=== PATIENT | male | born 1980 | race Caucasian/White ===

== ENCOUNTER 2017-03-17 15:35 | Emergency (ER) | payer MEDICAID, OTHER ==
[2017-03-17 15:42] VITALS: BP 111/74; PULSE 98; RESP 18; TEMP 98.1; O2SAT 99
--- NOTE | 2017-03-17 15:48 | C.PDOC ---
History Of Present Illness 36 y/o male presents to the ED requesting heroin detox. Patient denies any other associated symptoms at this time. REQUESTING HEROIN DETOX. DENIES OTHER ASSOC SX EXAM NAD PSYCH CALM COOPERATIVE NO ACUTE INTOX OR WITHDRAWAL Time Seen by Provider: 03/17/17 15:45 Chief Complaint (Nursing): Substance Abuse History Per: Patient History/Exam Limitations: no limitations Onset/Duration Of Symptoms: Hrs Current Symptoms Are (Timing): Still Present Suicide/Self Injury Attempted (Context): None Modifying Factor(s): Narcotics Associated Symptoms: denies: Suicidal Thoughts, Suicidal Plan Involuntary Hold By: None Recent travel outside of the [place]: No Additional History Per: Patient Past Medical History Reviewed: Historical Data, Nursing Documentation, Vital Signs Vital Signs: Last Vital Signs Temp 98.1 F 03/17/17 15:37 Pulse 98 H 03/17/17 15:37 Resp 18 03/17/17 15:37 BP 111/74 03/17/17 15:37 Pulse Ox 99 03/18/17 19:25 - Medical History PMH: No Chronic Diseases Surgical History: No Surg Hx Family History: States: Unknown Family Hx - Social History Hx Alcohol Use: No Hx Substance Use: Yes - Immunization History Hx Tetanus Toxoid Vaccination: Yes Hx Influenza Vaccination: Yes Hx Pneumococcal Vaccination: No Review Of Systems Psych: Positive for: Other (+requesting heroin detox ). Negative for: Suicidal ideation Physical Exam - Physical Exam Appears: Non-toxic, No Acute Distress Skin: Normal Color, Warm, Dry Head: Atraumatic, Normacephalic Eye(s): bilateral: Normal Inspection Oral Mucosa: Moist Neck: Supple Chest: Symmetrical, No Deformity, No Tenderness Cardiovascular: Rhythm Regular, No Murmur Respiratory: Normal Breath Sounds, No Rales, No Rhonchi, No Wheezing Extremity: Normal ROM Neurological/Psych: Other (calm, cooperative. no acute intoxication or withdrawal ) ED Course And Treatment O2 Sat by Pulse Oximetry: 99 (on RA) Pulse Ox Interpretation: Normal Progress Note: On reassessment, patient is resting comfortably and showing no signs of distress. Patient is informed about the unavailability of detox beds at this time and given proper information to inquire further about bed availability. - Physician Consult Information Time Consulting Physician Contacted: 15:47 Outcome Of Conversation: d/w crisis lukas no detox bed avail Disposition Counseled Patient/Family Regarding: Diagnosis, Need For Followup - Disposition Referrals: prerna,detox [Other] Disposition: HOME/ ROUTINE Disposition Time: 15:47 Condition: GOOD Instructions: Narcotic Abuse (ED) Forms: [email or web address] (Chinese) - Clinical Impression Clinical Impression: Narcotic abuse - Scribe Statement The provider has reviewed the documentation as recorded by the Scribe (Maribel Hi) Provider Attestation: All medical record entries made by the Scribe were at my direction and personally dictated by me. I have reviewed the chart and agree that the record accurately reflects my personal performance of the history, physical exam, medical decision making, and the department course for this patient. I have also personally directed, reviewed, and agree with the discharge instructions and disposition.
== END 2017-03-17 15:55 | disposition home or self-care (01) ==
LOC: C.ER 15:35
DX: F19.10 Other psychoactive substance abuse, uncomplicated (principal)

== ENCOUNTER 2017-05-18 18:23 | Inpatient (IN) | payer MEDICAID, OTHER ==
--- NOTE | 2017-05-18 19:31 | C.PDOC ---
History Of Present Illness Patient presents to the ER as a prescreen for heroin detox. Patient reports last use was 20 bags at 17:00; denies physical complaints at this time. Time Seen by Provider: 05/18/17 19:30 Chief Complaint (Nursing): Medical Clearance History Per: Patient History/Exam Limitations: no limitations Onset/Duration Of Symptoms: Hrs Current Symptoms Are (Timing): Still Present Severity: None Pain Scale Rating Of: 0 Recent travel outside of the [place]: No Past Medical History Reviewed: Historical Data, Nursing Documentation, Vital Signs Vital Signs: Last Vital Signs Temp 97.9 F 05/18/17 20:00 Pulse 82 05/18/17 20:00 Resp 18 05/18/17 20:00 BP 107/64 05/18/17 20:00 Pulse Ox 96 05/18/17 20:00 - Medical History PMH: No Chronic Diseases Surgical History: No Surg Hx Family History: States: No Known Family Hx - Social History Hx Alcohol Use: No Hx Substance Use: Yes - Immunization History Hx Tetanus Toxoid Vaccination: Yes Hx Influenza Vaccination: Yes Hx Pneumococcal Vaccination: No Review Of Systems Constitutional: Negative for: Fever, Chills Gastrointestinal: Negative for: Nausea, Vomiting, Diarrhea Physical Exam - Physical Exam Appears: Non-toxic Skin: Warm, Dry Head: Normacephalic Oral Mucosa: Moist Chest: Symmetrical Cardiovascular: Rhythm Regular Respiratory: No Rales, No Rhonchi, No Wheezing Gastrointestinal/Abdominal: Soft, No Tenderness Neurological/Psych: Oriented x3 ED Course And Treatment - Laboratory Results Result Diagrams: 05/18/17 19:52 05/18/17 19:52 O2 Sat by Pulse Oximetry: 100 (Room air) Pulse Ox Interpretation: Normal Progress Note: Blood work and urinalysis ordered. Reevaluation Time: 22:08 Reassessment Condition: Improved Disposition Discussed With : Placido Arteaga Comment: accepted the pt on his service and took over the care at 10:10 PM Doctor Will See Patient In The: Hospital Counseled Patient/Family Regarding: Studies Performed, Diagnosis - Disposition Disposition: HOSPITALIZED Disposition Time: 19:31 Condition: FAIR Forms: [facility] (Welsh) - POA Present On Arrival: None - Clinical Impression Clinical Impression: Narcotic abuse, Opioid use disorder, severe, dependence - Scribe Statement The provider has reviewed the documentation as recorded by the Scribluis enrique Richter All medical record entries made by the Antonietta were at my direction and personally dictated by me. I have reviewed the chart and agree that the record accurately reflects my personal performance of the history, physical exam, medical decision making, and the department course for this patient. I have also personally directed, reviewed, and agree with the discharge instructions and disposition. Decision To Admit - Pt Status Changed To: Hospital Disposition Of: Inpatient - Admit Certification Admit to Inpatient:: After my assessment, the patient will require hospitalization for at least two midnights. This is because of the severity of symptoms shown, intensity of services needed, and/or the medical risk in this patient being treated as an outpatient. - InPatient: Physician Admission Certification: I certify that this patient requires 2 or more midnights of care for the following reason:: After my assessment, the patient will require hospitalization for at least two midnights. This is because of the severity of symptoms shown, intensity of services needed, and/or the medical risk in this patient being treated as an outpatient. - . Bed Request Type: Detox Admitting Physician: Placido Arteaga Patient Diagnosis: Narcotic abuse, Opioid use disorder, severe, dependence
[2017-05-18 20:00] LABS: BASO % 0.4 % (0.0-2.0); EOS # 0.2 K/uL (0.0-0.7); EOS % 3.7 % (0.0-4.0); HEMATOCRIT 44.7 % (35.0-51.0); LYMPH # 2.3 K/uL (1.0-4.3); LYMPH % 34.7 % (20.0-40.0); MEAN CELL VOLUME 86.9 fL (80.0-94.0); MEAN CORPUSCULAR HEMOGLOBIN 29.1 pg (27.0-31.0); MEAN CORPUSCULAR HGB CONC 33.5 g/dL (33.0-37.0); MONO # 0.4 K/uL (0.0-0.8); MONO % 5.7 % (0.0-10.0); RED CELL DISTRIBUTION WIDTH 13.5 % (11.5-14.5); WHITE BLOOD COUNT 6.5 K/uL (4.8-10.8)
[2017-05-18 20:06] LABS: URINE BACTERIA RARE (<OCC); URINE BILIRUBIN NEGATIVE (NEGATIVE); URINE BLOOD NEGATIVE (NEGATIVE); URINE COLOR Yellow (YELLOW); URINE GLUCOSE (UA) NORMAL (Normal); URINE KETONE NEGATIVE (NEGATIVE); URINE LEUKOCYTE ESTERASE NEG Leu/uL (Negative); URINE PROTEIN NEGATIVE (NEGATIVE); URINE UROBILINOGEN NORMAL mg/dL (0.2-1.0); WBC URINE < 1 /hpf (0-5)
[2017-05-18 20:08] LABS: ALB/GLOB RATIO 1.4 (1.0-2.1); ALCOHOL SERUM < 10 mg/dl (0-10); ALKALINE PHOSPHATASE 60 U/L (38-126); ALT/SGPT 44 U/L (21-72); AST/SGOT 35 U/L (17-59); BILIRUBIN,TOTAL 0.8 mg/dL (0.2-1.3); BLOOD UREA NITROGEN 14 mg/dL (9-20); CALCIUM 8.6 mg/dl (8.6-10.4); CARBON DIOXIDE 30 mmol/L (22-30); CHLORIDE 98 mmol/L (98-107); GFR AFRICAN-AMERICAN > 60; GLUCOSE,RANDOM 87 mg/dL (75-110); SODIUM 138 mmol/L (132-148); TOTAL PROTEIN 7.6 g/dL (6.3-8.3)
--- NOTE | 2017-05-19 00:55 | PCM.BM ---
<CristobalNettie mcconnell Eron - Last Filed: 05/19/17 00:50> Treatment Plan Problems - Problems identified on initial assessmt Opiate Dependence Date Initiated: 05/18/17 Time Initiated: 23:30 Assessment reference: NA Status: Active Treatment assets and liabiliti Patient Assests: ADL independent Patient Liabilities: substance abuse, legal issue - Milieu Protocol Maintain good personal hygiene: daily Encourage regular showers, daily Remind patient to perform daily oral care, daily Assist patient to perform ADL's Maintain personal safety: every shift Educate patient to report safety concerns to staff, every shift Monitor environment for contraband/sharps Medication safety: Monitor for expected outcome, potential side effects: every shift, Assess barriers to learning: every shift, Assess readiness for medication education: every shift <Latosha Titus - Last Filed: 05/19/17 13:05> - Diagnosis (1) Opioid use disorder, severe, dependence Status: Acute Interventions: 05/19/17 13:05 * Assess 7x/week regarding severity of withdrawal * Educate regarding risks, benefits, side effects and alternatives of medications * Use Motivational Interviewing for abstinence * Use CBT for relapse prevention * Medication management for withdrawal symptoms * Encourage medication assisted treatment * <Manjula Tolliver - Last Filed: 05/21/17 14:33> Family Contact Family involvement: Famliy/SO not involved Family contact: Patient declines to allow family contact at present - Goals for Treatment Patient goals for treatment: Complete detox and discuss aftercare options. Discharge/Continuing Care - Education Needs Education Needs: Patient Medication, Patient Diagnosis/Disease Process, Patient Coping Skills, Patient Anger Management skills, Patient Placement options, Patient Community resources, Patient Activities of Daily Living - Discharge Discharge Criteria: Free of agitation, No longer exhibiting s/s of withdrawal, Reduction of target symptoms Discharge to:: Home - Treatment Team Participation Patient/Family/SO Statement: 05/21/17 14:32 "I just wanna go to meetings..." Discussed with Family/SO: No Was Patient/Family/SO present at Treatment Team Meeting: Yes
--- NOTE | 2017-05-19 13:01 | PCM.PSYCH ---
Initial Psychiatric Evaluation - Initial Psychiatric Evaluation Type of Admission: Voluntary Legal Status: Capacity Chief Complaint (in patient's own words): "I don;t feel well" History of Present Illness and Precipitating Events: Pt is a 36y/o male who is single with 1 child who is 24 years old. At the moment he lives with his mother in [place] and is unemployed. He is here for opioid detox. He sniffs 2-3 bundles a day for the past 3 years. Last use was yesterday morning. Prior to using heroin, he used an unspecified amount of Percocet for an unspecified amount of time. He has prior history of PCP use in his teens for an unspecified amount of time. He smokes 1/2 pack of cigarettes a day and he refused the patch. He denies cocaine, methadone, marijuana, and alcohol. His Utox was positive for methadone and cocaine but he denied any use and claimed it must be put in the bags. He started to have wdw sx already he had some IOPs in the past all court mandated, no detox or inter[facility] truck [facility] rehab. Social: He was incarcerated for 10 years and was recently released in 2016 and then again until September 2016 and he is currently on probation. Past psych hx: Treated for depression and anger in the past and used meds, but has been med-free and sx-free "for a long time" Family psych hx: Denies Medical hx: Denies Current Medications: Active Medications Generic Name Dose Route Start Last Admin Trade Name Freq PRN Reason Stop Dose Admin Clonidine HCl 0.1 mg 05/19/17 01:08 05/19/17 01:31 Catapres PO 0.1 mg Q6 PRN Administration opiate withdrawal symptoms Hydroxyzine HCl 25 mg 05/19/17 01:11 Atarax PO Q6 PRN Anxiety Ibuprofen 600 mg 05/19/17 01:13 Motrin Tab PO TID PRN Pain, moderate (4-7) Methadone HCl 25 mg 05/19/17 10:00 05/19/17 11:44 Methadone PO 05/24/17 09:59 25 mg Q24H BONI Administration Taper Ondansetron HCl 4 mg 05/19/17 01:15 Zofran Tab PO Q6 PRN Nausea/Vomiting Trazodone HCl 50 mg 05/19/17 01:07 05/19/17 01:31 Desyrel PO 50 mg HS PRN Administration Insomnia Past Psychiatric History - Past Psychiatric History Previous Treatment History: Intensive Outpatient (not intensive) Pertinent Medical Hx (Current Medical&Sleep Prob, Allergies): Allergies Allergy/AdvReac Type Severity Reaction Status Date / Time No Known Allergies Allergy Verified 05/18/17 18:43 No Known Home Med 03/17/17 Review of Systems - Neurological Neurological: UNREMARKABLE - Psychiatric Psychiatric: Abnormal Sleep Pattern, Anxiety, Irritability. absent: Depression , Hallucinations, Homicidal Ideation, Paranoia, Suicidal Ideation Mental Status Examination - Personal Presentation Personal Presentation: Looks stated age - Affect Affect: Constricted - Motor Activity Motor Activity: Calm - Reliability in Providing Information Reliability in Providing Information: Good - Speech Speech: Organized - Mood Mood: Anxious - Formal Thought Process Formal Thought Process: No Impairment - Cognitive Functions Orientation: Person, Place, Situation, Time Sensorium: Alert Attention/Concentration: Attentive Estimate of Intelligence: Average Judgement: Intact, as evidence by: Insight regarding need for hospitalization Memory: Recent intact, as evidence by: Ability to recall events of the day, Remote intact, as evidenced by: Abilit to recall sig. life events - Risk Risk: Withdrawal, Diminished functioning - Strength & Assets Inventory Strength & Assets Inventory: Family support, Cooperative - Limitations Limitations: Living alone DSM 5 DX - DSM 5 DSM 5 Diagnosis: Opioid withdrawal opioid use d/o - severe tobacco use d/o - moderate PCP use d/o, severe, in sustained remission r/o Personality d/o - unspecified - Recommended/Plan of Treatment Treatment Recommendations and Plan of Treatment: Methadone detox As needed medications Attend groups and activities Supportive therapy and psychoeducation [place] for abstinence CBT for relapse prevention Encourage MAT Refer to rehab or IOP, and self-help groups Smoking cessation with [place] 34 min Projected ELOS: 4-5 days Prognosis: good with treatment Discharge Plan and Discharge Criteria: no wdw sxs refer to a rehab - Smoking Cessation Smoking Cessation Initiated: Yes
--- NOTE | 2017-05-20 21:59 | PCM.PYCHPN ---
Psychiatric Progress Note - Psychiatric Progress Note Patient seen today, length of contact: 15 min Patient Chief Complaint: "I am still withdrawing" Problems Identified/Issues Discussed: The pt is seen, chart reviewed, case discussed with staff. Support given, CBT and [place] used briefly No new symptoms reported, except for ongoing vague wdw sx, improving slowly and needs more time No SEs from medications, risks discussed. After care discussed - unclear yet PRN methadone added Medication Change: Yes (detox changes daily) Medical Record Reviewed: Yes Mental Status Examination - Cognitive Function Orientation: Person, Place, Situation, Time Memory: Intact Attention: Poor Concentration: Poor Association: WNL Fund of Knowledge: Poor - Mood Mood: Anxious - Affect Affect: Constricted - Speech Speech: Appropriate - Formal Thought Process Formal Thought Process: No Impairment - Suicidal Ideation Suicidal Ideation: No - Homicidal Ideation Homicidal Ideation: No Goal/Treatment Plan - Goal/Treatment Plan Need for Continued Stay: Discharge may exacerbated symptoms, Severe functional impairment Progress Toward Problem(s) and Goals/Treatment Plan: Methadone detox As needed medications Attend groups and activities Supportive therapy and psychoeducation [place] for abstinence CBT for relapse prevention Encourage MAT Refer to rehab or IOP, and self-help groups Smoking cessation with [place]
--- NOTE | 2017-05-21 15:18 | PCM.PYCHPN ---
Psychiatric Progress Note - Psychiatric Progress Note Patient seen today, length of contact: 15 min Patient Chief Complaint: I need more methadone.' Problems Identified/Issues Discussed: Patient seen and evaluated, chart reviewed and discussed with the nurse. Patient reports anxiety and reports withdrawal symptoms including nausea, headaches, cramps and sweating. He reports irritability but denies any SI/HI/ AVH. He is taking medication and denies any side effects. Supportive therapy and psychoeducation were given. Medication Change: Yes (detox changes daily) Medical Record Reviewed: Yes Mental Status Examination - Cognitive Function Orientation: Person, Place, Situation, Time Memory: Intact Attention: Poor Concentration: Poor Association: WNL Fund of Knowledge: Poor - Mood Mood: Anxious - Affect Affect: Constricted - Speech Speech: Appropriate - Formal Thought Process Formal Thought Process: No Impairment - Suicidal Ideation Suicidal Ideation: No - Homicidal Ideation Homicidal Ideation: No Goal/Treatment Plan - Goal/Treatment Plan Need for Continued Stay: Discharge may exacerbated symptoms, Severe functional impairment Progress Toward Problem(s) and Goals/Treatment Plan: Opioid withdrawal opioid use d/o - severe tobacco use d/o - moderate PCP use d/o, severe, in sustained remission r/o Personality d/o - unspecified Methadone detox As needed medications Attend groups and activities Supportive therapy and psychoeducation [place] for abstinence CBT for relapse prevention Encourage MAT Refer to rehab or IOP, and self-help groups Smoking cessation with [place] - Smoking Cessation Smoking Cessation Initiated: No
[2017-05-22 10:37] VITALS: RESP 18
[2017-05-22 13:36] VITALS: BP 109/68; PULSE 80; TEMP 97.9; O2SAT 100
--- NOTE | 2017-05-22 19:39 | PCM.PYCHDC ---
Mental Status Examination - Mental Status Examination Orientation: Person Discharge Summary - Discharge Note Consultations:: List each consultation separately and include: 1. Reason for request. 2. Findings. 3. Follow-up Summary of Hospital Course include:: 1. Description of specific treatment plan utilized for patients during their course of treatmen. 2. Summarize the time- course for resolution of acute symptoms and/or regressed behaviors. 3. Describe issues identified and worked on during hospitalization. 4. Describe medication utilized. 5. Describe medical problems identified and treated. 6. Reassessment of suicide risk Summary of Hospital Course: Pt is a 36y/o male who is single with 1 child who is 24 years old. At the moment he lives with his mother in [place] and is unemployed. He is here for opioid detox. He sniffs 2-3 bundles a day for the past 3 years. Last use was yesterday morning. Prior to using heroin, he used an unspecified amount of Percocet for an unspecified amount of time. He has prior history of PCP use in his teens for an unspecified amount of time. He smokes 1/2 pack of cigarettes a day and he refused the patch. He denies cocaine, methadone, marijuana, and alcohol. His Utox was positive for methadone and cocaine but he denied any use and claimed it must be put in the bags. He started to have wdw sx already he had some IOPs in the past all court mandated, no detox or alf rehab. Social: He was incarcerated for 10 years and was recently released in 2016 and then again until September 2016 and he is currently on probation. Past psych hx: Treated for depression and anger in the past and used meds, but has been med-free and sx-free "for a long time" Family psych hx: Denies Medical hx: Denies He left 1.5 days early, rather suddenly. - Final Diagnosis (DSM 5) Condition upon Discharge: FAIR Disposition: HOME/ ROUTINE Follow-up Treatment Plan: Methadone detox As needed medications Attend groups and activities Supportive therapy and psychoeducation [place] for abstinence CBT for relapse prevention Encourage MAT Refer to rehab or IOP, and self-help groups Smoking cessation with [place]
== END 2017-05-22 14:50 | disposition home or self-care (01) | DRG 745 ==
LOC: C.ER 18:23 → C.7D 22:08
PROC: HZ2ZZZZ Detoxification Services for Substance Abuse Treatment (ICD-10-PCS; principal; 2017-05-18)
PROC: HZ59ZZZ Individual Psychotherapy for Substance Abuse Treatment, Supportive (ICD-10-PCS; 2017-05-18)
PROC: HZ46ZZZ Group Counseling for Substance Abuse Treatment, Psychoeducation (ICD-10-PCS; 2017-05-18)
DX: F11.23 Opioid dependence with withdrawal (principal); F41.9 Anxiety disorder, unspecified; F60.9 Personality disorder, unspecified; F17.210 Nicotine dependence, cigarettes, uncomplicated

== ENCOUNTER 2017-07-28 16:35 | Inpatient (IN) | payer MEDICAID, OTHER ==
--- NOTE | 2017-07-28 17:28 | C.PDOC ---
History Of Present Illness 36-year-old male, presents to the emergency department requesting detox from Heroin. Patients last use was last night. Denies nausea/vomiting, chest pain or shortness of breath. Patient snorts. Time Seen by Provider: 07/28/17 17:15 Chief Complaint (Nursing): Substance Abuse History Per: Patient History/Exam Limitations: no limitations Onset/Duration Of Symptoms: Days Current Symptoms Are (Timing): Still Present Past Medical History Reviewed: Historical Data, Nursing Documentation, Vital Signs Vital Signs: Last Vital Signs Temp 98.6 F 07/28/17 17:04 Pulse 94 H 07/28/17 17:04 Resp 20 07/28/17 17:04 BP 107/63 07/28/17 17:04 Pulse Ox 98 07/28/17 17:04 - Medical History PMH: Denies: Diabetes, Hepatitis, HIV, HTN, Seizures, Sexually Transmitted Disease - [facility] DETOXIFICATION SERVICES FOR SUBSTANCE ABUSE TREATMENT (05/18/17) GROUP OBSTETRICAL ANESTHESIOLOGIST FOR SUBSTANCE ABUSE TREATMENT, PSYCHOEDUCATION (05/18/17) INDIV PSYCHOTHERAPY FOR SUBSTANCE ABUSE TREATMENT, SUPPORT (05/18/17) Family History: States: No Known Family Hx - Social History Hx Alcohol Use: Yes Hx Substance Use: Yes - Immunization History Hx Tetanus Toxoid Vaccination: Yes Hx Influenza Vaccination: No Hx Pneumococcal Vaccination: No Review Of Systems Except As Marked, All Systems Reviewed And Found Negative. Constitutional: Positive for: Malaise. Negative for: Fever, Chills Cardiovascular: Negative for: Chest Pain, Palpitations Respiratory: Negative for: Shortness of Breath Gastrointestinal: Positive for: Abdominal Pain. Negative for: Nausea, Vomiting Neurological: Negative for: Weakness, Numbness, Headache, Dizziness Physical Exam - Physical Exam Appears: Non-toxic, No Acute Distress Skin: Warm, Dry, No Rash Head: Atraumatic, Normacephalic Eye(s): bilateral: Normal Inspection, PERRL Nose: Normal Oral Mucosa: Moist Lips: Normal Appearing Neck: Normal ROM Chest: Symmetrical Cardiovascular: Rhythm Regular, No Murmur Respiratory: Normal Breath Sounds, No Accessory Muscle Use Extremity: Normal ROM Neurological/Psych: Oriented x3, Normal Speech ED Course And Treatment O2 Sat by Pulse Oximetry: 98 (RA) Pulse Ox Interpretation: Normal Progress Note: Bloodwork and UDS/UA ordered and reviewed. Disposition - Disposition - Scribe Statement The provider has reviewed the documentation as recorded by the Scribe (Ana Cruz) All medical record entries made by the Scribe were at my direction and personally dictated by me. I have reviewed the chart and agree that the record accurately reflects my personal performance of the history, physical exam, medical decision making, and the department course for this patient. I have also personally directed, reviewed, and agree with the discharge instructions and disposition.
[2017-07-28 17:43] LABS: BASO % 0.4 % (0.0-2.0); EOS # 0.2 K/uL (0.0-0.7); EOS % 1.6 % (0.0-4.0); HEMOGLOBIN 14.4 g/dL (12.0-18.0); LYMPH # 1.5 K/uL (1.0-4.3); LYMPH % 12.5 % (20.0-40.0); MEAN CELL VOLUME 86.5 fL (80.0-94.0); MEAN CORPUSCULAR HEMOGLOBIN 29.9 pg (27.0-31.0); MEAN CORPUSCULAR HGB CONC 34.6 g/dL (33.0-37.0); MEAN PLATELET VOLUME 8.1 fL (7.2-11.7); MONO # 0.6 K/uL (0.0-0.8); MONO % 4.8 % (0.0-10.0); NEUT # 9.6 K/uL (1.8-7.0); NEUT % 80.7 % (50.0-75.0); RBC 4.81 Mil/uL (4.40-5.90); WHITE BLOOD COUNT 11.9 K/uL (4.8-10.8)
[2017-07-28 17:50] LABS: URINE BACTERIA RARE (<OCC)
[2017-07-28 17:57] LABS: ALB/GLOB RATIO 1.2 (1.0-2.1); ALBUMIN 3.9 g/dL (3.5-5.0); ALT/SGPT 33 U/L (21-72); AST/SGOT 27 U/L (17-59); BLOOD UREA NITROGEN 16 mg/dL (9-20); GFR AFRICAN-AMERICAN > 60; GFR NON-AFRICAN AMERICAN > 60; PH,URINE 5.5 (5.0-8.0); URINE BILIRUBIN NEGATIVE (NEGATIVE); URINE BLOOD NEGATIVE (NEGATIVE); URINE CLARITY CLEAR (Clear); URINE COLOR YELLOW (YELLOW); URINE GLUCOSE (UA) NEGATIVE (Normal); URINE LEUKOCYTE ESTERASE NEGATIVE Leu/uL (Negative); URINE NITRATE NEGATIVE (NEGATIVE); URINE PROTEIN NEGATIVE (NEGATIVE); URINE UROBILINOGEN 0.2 mg/dL (0.2-1.0)
[2017-07-28 17:58] LABS: BARBITURATES, UR NEGATIVE (NEGATIVE); BENZODIAZEPINES, UR NEGATIVE (NEGATIVE); PHENCYCLIDINE, UR NEGATIVE (NEGATIVE)
[2017-07-28 18:25] LABS: OPIATES, UR POSITIVE (NEGATIVE)
[2017-07-28] MEDS ORDERED: Aluminum Hydroxide/Magnesium Hydroxide Susp (30 mL) PO PRN (18:49)
--- NOTE | 2017-07-28 19:15 | PCM.BM ---
<Anamika Maldonado - Last Filed: 07/28/17 19:14> Treatment Plan Problems - Problems identified on initial assessmt potiential for opiate withdrawal Date Initiated: 07/28/17 Time Initiated: 19:14 Assessment reference: NA Status: Active Treatment assets and liabiliti Patient Assests: ADL independent, physically healthy Patient Liabilities: substance abuse - Milieu Protocol Maintain good personal hygiene: daily Encourage regular showers, daily Remind patient to perform daily oral care, daily Assist patient to perform ADL's Maintain personal safety: every shift Educate patient to report safety concerns to staff, every shift Monitor environment for contraband/sharps Medication safety: Monitor for expected outcome, potential side effects: every shift, Assess barriers to learning: every shift, Assess readiness for medication education: every shift <Latosha Titus - Last Filed: 07/31/17 11:04> - Diagnosis (1) Opioid use disorder, severe, dependence Status: Acute Interventions: 07/31/17 11:03 * Assess 7x/week regarding severity of withdrawal * Educate regarding risks, benefits, side effects and alternatives of medications * Use Motivational Interviewing for abstinence * Use CBT for relapse prevention * Medication management for withdrawal symptoms * Encourage medication assisted treatment *
[2017-07-28] MEDS ORDERED: Buprenorphine Hydrochloride 2 mg SL ONE ×2 (19:56→21:26)
[2017-07-29] MEDS: Buprenorphine Hydrochloride 2 mg SL SCH (09:17)
--- NOTE | 2017-07-29 13:51 | PCM.PSYCH ---
Initial Psychiatric Evaluation - Initial Psychiatric Evaluation Type of Admission: Voluntary Legal Status: Capacity Chief Complaint (in patient's own words): "I don't feel well" History of Present Illness and Precipitating Events: Pt is a 36 year old single male. 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 The pt reports he wants to detox from heroin which he snorts 20bags of every day. Pt reports he began using 3 years ago after being on painkillers the year prior. Th patient snorts cocaine and smokes a half a pack of cigarettes a day. The patient denies the use of alcohol , cannabis, and other drugs. The patient reports current legal issues regarding the possession of drugs. Detox Hx: once Rehab Hx: denies Medical Hx:denies Medications:denies Psych Hx: denues Fam Hx: denies Pt Plan: patient would [facility] go [facility] Current Medications: Active Medications Generic Name Dose Route Start Last Admin Trade Name Freq PRN Reason Stop Dose Admin Acetaminophen 650 mg 07/28/17 18:49 Tylenol 325mg Tab PO Q4H PRN Fever greater than 101 F Al Hydrox/Mg Hydrox/Simethicone 30 ml 07/28/17 18:49 Maalox 30 Ml PO TID PRN Indigestion / Heartburn Buprenorphine HCl 8 mg 07/29/17 10:00 07/29/17 09:17 Subutex SL 08/03/17 09:59 8 mg DAILY BONI Administration Taper Clonidine HCl 0.1 mg 07/28/17 18:49 Catapres PO Q8 PRN COWS Score More or Equal to 5 Hydroxyzine HCl 25 mg 07/28/17 18:49 Atarax PO Q6 PRN Agitation Loperamide HCl 2 mg 07/28/17 18:49 Imodium PO Q8 PRN Diarrhea Ondansetron HCl 4 mg 07/28/17 18:49 Zofran Tab PO Q8 PRN Nausea/Vomiting Trazodone HCl 50 mg 07/28/17 22:00 07/28/17 22:06 Desyrel PO 50 mg HS BONI Administration Past Psychiatric History - Past Psychiatric History Pertinent Medical Hx (Current Medical&Sleep Prob, Allergies): Allergies Allergy/AdvReac Type Severity Reaction Status Date / Time No Known Allergies Allergy Verified 05/18/17 18:43 No Known Home Med 03/17/17 Review of Systems - Constitutional Constitutional: Weakness. absent: Sweats - Neurological Neurological: UNREMARKABLE - Psychiatric Psychiatric: UNREMARKABLE Mental Status Examination - Personal Presentation Personal Presentation: Looks stated age - Affect Affect: Constricted - Motor Activity Motor Activity: Calm - Reliability in Providing Information Reliability in Providing Information: Good - Speech Speech: Organized - Mood Mood: Neutral - Formal Thought Process Formal Thought Process: No Impairment - Obsessions/Compulsions Obsessions: None Compulsions: None - Cognitive Functions Orientation: Person, Place, Situation, Time Sensorium: Drowsy Attention/Concentration: Easily distracted Abstract Thinking: [place] Estimate of Intelligence: Average Judgement: Intact, as evidence by: Insight regarding need for hospitalization Memory: Recent intact, as evidence by: Ability to recall events of the day, Remote intact, as evidenced by: Abilit to recall sig. life events - Risk Risk: Withdrawal - Strength & Assets Inventory Strength & Assets Inventory: Employment status - Limitations Limitations: Living alone DSM 5 DX - DSM 5 DSM 5 Diagnosis: Opioid Withdrawal Opioid Use d/o - severe Cocaine Use d/o - severe Tobacco use d/o - mild - Recommended/Plan of Treatment Treatment Recommendations and Plan of Treatment: Opioid detox Gabapentin for augmentation As needed medications All risks, benefits and alternatives of the meds discussed, and the pt agreed and understood. Attend groups and activities Supportive therapy and psychoeducation [place] for abstinence CBT for relapse prevention Encourage MAT Refer to rehab or IOP, and self-help groups Smoking cessation with [place] Nicotine patch 34 min Projected ELOS: 4-5 d Prognosis: good with treatment Discharge Plan and Discharge Criteria: [facility] and MAT
[2017-07-30] MEDS: Buprenorphine Hydrochloride 2 mg SL SCH (10:44)
--- NOTE | 2017-07-30 13:25 | PCM.PYCHPN ---
Psychiatric Progress Note - Psychiatric Progress Note Patient seen today, length of contact: 15 min Patient Chief Complaint: "I am sweating" Problems Identified/Issues Discussed: The pt is seen, chart reviewed, case discussed with staff. The pt is compliant with medications and reports no side-effects. Patient reports that she has been having hot and cold sweats through the night. His body feels achy and he has cramping . The patient reports not sleeping well. Pt needs more time to stabilize. After care discussed, support and psychoeducation given. Upon seeing the patient again after lunch, he reports that he is doing much better. Medication Change: Yes (detox changes daily ) Medical Record Reviewed: Yes Mental Status Examination - Cognitive Function Orientation: Person, Place, Situation, Time Memory: Intact Attention: WNL Concentration: WNL Association: WNL Fund of Knowledge: WN Decription of patient's judgement and insights: good - Mood Mood: Neutral - Affect Affect: Constricted - Speech Speech: Appropriate - Formal Thought Process Formal Thought Process: No Impairment Psychotic Thoughts and Behaviors: none - Suicidal Ideation Suicidal Ideation: No - Homicidal Ideation Homicidal Ideation: No Goal/Treatment Plan - Goal/Treatment Plan Need for Continued Stay: Remain at risks for inpatient hospitalization, Discharge may exacerbated symptoms Progress Toward Problem(s) and Goals/Treatment Plan: Opioid detox Gabapentin for augmentation As needed medications All risks, benefits and alternatives of the meds discussed, and the pt agreed and understood. Attend groups and activities Supportive therapy and psychoeducation [place] for abstinence CBT for relapse prevention Encourage MAT Refer to rehab or IOP, and self-help groups Smoking cessation with [place] Nicotine patch
--- NOTE | 2017-07-31 09:21 | PCM.PYCHPN ---
Psychiatric Progress Note - Psychiatric Progress Note Patient seen today, length of contact: 15 min Patient Chief Complaint: I am still withdrawing Problems Identified/Issues Discussed: Patient seen and evaluated, chart reviewed and discussed with the nurse. The patient reports improvement in his mood but still reports withdrawal symptoms including back pains, cramps, anxiety, headaches and sweating. Patient has something anxiety and denies any suicidal ideation or homicidal ideation. Patient is tolerating detox medications and denies any side effects. Symptoms are improving but he needs more time for stabilization Supportive therapy and psychoeducation were given. Medication Change: Yes (detox changes daily ) Medical Record Reviewed: Yes Mental Status Examination - Cognitive Function Orientation: Person, Place, Situation, Time Memory: Intact Attention: WNL Concentration: WNL Association: WNL Fund of Knowledge: WNL - Mood Mood: Neutral - Affect Affect: Constricted - Speech Speech: Appropriate - Formal Thought Process Formal Thought Process: No Impairment - Suicidal Ideation Suicidal Ideation: No - Homicidal Ideation Homicidal Ideation: No Goal/Treatment Plan - Goal/Treatment Plan Need for Continued Stay: Remain at risks for inpatient hospitalization, Discharge may exacerbated symptoms Progress Toward Problem(s) and Goals/Treatment Plan: Opioid Withdrawal Opioid Use d/o - severe Cocaine Use d/o - severe Tobacco use d/o - mild Opioid detox Gabapentin for augmentation As needed medications All risks, benefits and alternatives of the meds discussed, and the pt agreed and understood. Attend groups and activities Supportive therapy and psychoeducation [place] for abstinence CBT for relapse prevention Encourage MAT Refer to rehab or IOP, and self-help groups Smoking cessation with [place] Nicotine patch - Smoking Cessation Smoking Cessation Initiated: Yes
[2017-07-31] MEDS: Buprenorphine Hydrochloride 2 mg SL SCH (10:56)
[2017-08-01] MEDS: Buprenorphine Hydrochloride 2 mg SL SCH (10:57)
--- NOTE | 2017-08-01 11:40 | PCM.PYCHPN ---
Psychiatric Progress Note - Psychiatric Progress Note Patient seen today, length of contact: 15 min Patient Chief Complaint: Feeling anxious Problems Identified/Issues Discussed: Patient seen and evaluated, chart reviewed and discussed with the nurse. Today patient reports a lot of anxiety and reports withdrawal symptoms including abdominal cramps, joint pains, headaches and sweating. Patient reports irritability but denies any suicidal ideation or homicidal ideation. Patient is tolerating detox medications and denies any side effects. Symptoms are improving but he needs more time for stabilization Supportive therapy and psychoeducation were given. Medication Change: Yes (detox changes daily ) Medical Record Reviewed: Yes Mental Status Examination - Cognitive Function Orientation: Person, Place, Situation, Time Memory: Intact Attention: WNL Concentration: WNL Association: WNL Fund of Knowledge: WNL - Mood Mood: Neutral - Affect Affect: Constricted - Speech Speech: Appropriate - Formal Thought Process Formal Thought Process: No Impairment - Suicidal Ideation Suicidal Ideation: No - Homicidal Ideation Homicidal Ideation: No Goal/Treatment Plan - Goal/Treatment Plan Need for Continued Stay: Remain at risks for inpatient hospitalization, Discharge may exacerbated symptoms Progress Toward Problem(s) and Goals/Treatment Plan: Opioid Withdrawal Opioid Use d/o - severe Cocaine Use d/o - severe Tobacco use d/o - mild Opioid detox Gabapentin for augmentation As needed medications All risks, benefits and alternatives of the meds discussed, and the pt agreed and understood. Attend groups and activities Supportive therapy and psychoeducation [place] for abstinence CBT for relapse prevention Encourage MAT Refer to rehab or IOP, and self-help groups Smoking cessation with [place] Nicotine patch
[2017-08-01 13:36] VITALS: RESP 18
--- NOTE | 2017-08-02 09:41 | PCM.PYCHDC ---
Mental Status Examination - Mental Status Examination Orientation: Person, Place, Situation, Time Memory: Intact Mood: Anxious Affect: Constricted Speech: Appropriate Attention: WNL Concentration: WNL Association: WNL Fund of Knowledge: WNL Formal Thought Process: No Impairment Description of patient's judgement and insight: good Psychotic Thoughts and Behaviors: none Suicidal Ideation: No Current Homicidal Ideation?: No Discharge Summary - Discharge Note Consultations:: List each consultation separately and include: 1. Reason for request. 2. Findings. 3. Follow-up Summary of Hospital Course include:: 1. Description of specific treatment plan utilized for patients during their course of treatmen. 2. Summarize the time- course for resolution of acute symptoms and/or regressed behaviors. 3. Describe issues identified and worked on during hospitalization. 4. Describe medication utilized. 5. Describe medical problems identified and treated. 6. Reassessment of suicide risk Summary of Hospital Course: The pt is seen, chart reviewed and case discussed On admission: Pt is a 36 year old single male. 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 The pt reports he wants to detox from heroin which he snorts 20bags of every day. Pt reports he began using 3 years ago after being on painkillers the year prior. Th patient snorts cocaine and smokes a half a pack of cigarettes a day. The patient denies the use of alcohol , cannabis, and other drugs. The patient reports current legal issues regarding the possession of drugs. Detox Hx: once Rehab Hx: denies Medical Hx:denies Medications:denies Psych Hx: denues Fam Hx: denies Pt Plan: patient would like to go [facility] Hospital course: The pt was admitted and started on treatment with psychotherapy, support, psychoeducation and medications. PA and CBT used. The pt attended groups and activities, as well as milieu therapy. All the risks and benefits of medications are discussed and the patient understood and agreed. The pt improved with the treatments provided. After care discussed with the patient. He went to [facility] - Diagnosis (1) Opioid use disorder, severe, dependence Status: Acute - Final Diagnosis (DSM 5) Condition upon Discharge: GOOD Disposition: REHAB FACILITY/REHAB UNIT Follow-up Treatment Plan: Continue below medications after discharge. Follow after care plan as discussed. Use relapse prevention skills Return to ER or call 911 if suicidal, homicidal or symptoms relapse. Stay away from stress, alcohol and drugs. See primary doctor regularly and get labs. Prescriptions/Medication Reconciliation: Gabapentin [Neurontin] 300 mg PO TID #90 cap traZODone [Desyrel] 50 mg PO HS #30 tab
[2017-08-02] MEDS: Buprenorphine Hydrochloride 2 mg SL SCH (09:45)
[2017-08-02 10:29] VITALS: BP 98/61; PULSE 69; TEMP 97.9; O2SAT 98
== END 2017-08-02 10:30 | DRG 745 ==
LOC: C.ER 16:35 → C.7D 18:55
PROVIDERS: ADMIT Psychiatry & Neurology Psychiatry; ATTEND Psychiatry & Neurology Psychiatry
PROC: HZ2ZZZZ Detoxification Services for Substance Abuse Treatment (ICD-10-PCS; principal; 2017-07-28)
DX: F11.23 Opioid dependence with withdrawal (principal); F14.90 Cocaine use, unspecified, uncomplicated; F17.210 Nicotine dependence, cigarettes, uncomplicated; F41.9 Anxiety disorder, unspecified

== ENCOUNTER 2017-11-22 17:41 | Inpatient (IN) | payer MEDICAID, OTHER ==
--- NOTE | 2017-11-22 18:53 | C.PDOC ---
History Of Present Illness 37 year old male presents to the ED requesting heroin detox. Patient states his last use was this morning. Patient denies suicidal/homicidal ideation and other drug use at this time. Time Seen by Provider: 11/22/17 18:14 Chief Complaint (Nursing): Substance Abuse History Per: Patient History/Exam Limitations: no limitations Onset/Duration Of Symptoms: Hrs Current Symptoms Are (Timing): Gone Suicide/Self Injury Attempted (Context): None Modifying Factor(s): Narcotics (heroin ) Associated Symptoms: denies: Suicidal Thoughts, Suicidal Plan Involuntary Hold By: None Recent travel outside of the [place]: No Additional History Per: Patient Past Medical History Reviewed: Historical Data, Nursing Documentation, Vital Signs Vital Signs: Last Vital Signs Temp 98.1 F 11/22/17 19:41 Pulse 72 11/22/17 19:41 Resp 18 11/22/17 19:41 BP 92/55 L 11/22/17 19:41 Pulse Ox 99 11/22/17 19:41 - Medical History PMH: No Chronic Diseases Denies: Diabetes, Hepatitis, HIV, HTN, Seizures, Sexually Transmitted Disease Surgical History: No Surg Hx - [facility] Procedures DETOXIFICATION SERVICES FOR SUBSTANCE ABUSE TREATMENT (07/28/17) GROUP WATER TESTER FOR SUBSTANCE ABUSE TREATMENT, PSYCHOEDUCATION (05/18/17) INDIV PSYCHOTHERAPY FOR SUBSTANCE ABUSE TREATMENT, SUPPORT (05/18/17) Family History: States: Unknown Family Hx - Social History Hx Alcohol Use: Yes Hx Substance Use: Yes - Immunization History Hx Tetanus Toxoid Vaccination: Yes Hx Influenza Vaccination: No Hx Pneumococcal Vaccination: No Review Of Systems Psych: Positive for: Other (heroin detox ). Negative for: Suicidal ideation Physical Exam - Physical Exam Appears: Non-toxic, No Acute Distress Skin: Normal Color, Warm, Dry Head: Atraumatic, Normacephalic Eye(s): bilateral: Normal Inspection Oral Mucosa: Moist Neck: Supple Chest: Symmetrical, No Deformity, No Tenderness Cardiovascular: Rhythm Regular, No Murmur Respiratory: Normal Breath Sounds, No Rales, No Rhonchi, No Wheezing Extremity: Normal ROM, Capillary Refill (less than 2 seconds ) Neurological/Psych: Oriented x3, Normal Speech, Normal Cognition ED Course And Treatment - Laboratory Results Result Diagrams: 11/22/17 18:15 11/22/17 18:57 O2 Sat by Pulse Oximetry: 97 (on RA) Pulse Ox Interpretation: Normal Medical Decision Making Medical Decision Making: Impression: 37 year old male requesting heroin detox Plan: * bloodwork * urinalysis * crisis evaluation * reassess and disposition Progress: Labs ordered and reviewed. In my clinical judgment patient is medically cleared and stable for psychiatric admission. Patient evaluated by tin worker. As per CW patient is to be admitted. Patient accepted for detox of opiate and alcohol abuse Disposition - Disposition Disposition: HOSPITALIZED Disposition Time: 19:55 Condition: STABLE - POA Present On Arrival: None - Clinical Impression Clinical Impression: Opioid use disorder, severe, dependence - PA / SHOW JUMPING INSTRUCTOR / Resident Statement MD/DO has reviewed & agrees with the documentation as recorded. - Scribe Statement The provider has reviewed the documentation as recorded by the Scribe (Maribel Hi) All medical record entries made by the Scribe were at my direction and personally dictated by me. I have reviewed the chart and agree that the record accurately reflects my personal performance of the history, physical exam, medical decision making, and the department course for this patient. I have also personally directed, reviewed, and agree with the discharge instructions and disposition. Decision To Admit - Pt Status Changed To: Hospital Disposition Of: Inpatient - Admit Certification Admit to Inpatient:: After my assessment, the patient will require hospitalization for at least two midnights. This is because of the severity of symptoms shown, intensity of services needed, and/or the medical risk in this patient being treated as an outpatient. - InPatient: Physician Admission Certification: I certify that this patient requires 2 or more midnights of care for the following reason:: Patient accepted for detox of opiate and alcohol abuse - . Bed Request Type: Detox Admitting Physician: James Espinoza Patient Diagnosis: Opioid use disorder, severe, dependence
[2017-11-22 19:03] LABS: BASO % 0.3 % (0.0-2.0); EOS # 0.1 K/uL (0.0-0.7); EOS % 0.7 % (0.0-4.0); HEMOGLOBIN 14.7 g/dL (12.0-18.0); LYMPH # 1.7 K/uL (1.0-4.3); LYMPH % 19.7 % (20.0-40.0); MEAN CELL VOLUME 85.5 fL (80.0-94.0); MEAN CORPUSCULAR HEMOGLOBIN 29.6 pg (27.0-31.0); MEAN CORPUSCULAR HGB CONC 34.6 g/dL (33.0-37.0); MEAN PLATELET VOLUME 8.4 fL (7.2-11.7); MONO # 0.4 K/uL (0.0-0.8); MONO % 4.6 % (0.0-10.0); NEUT # 6.5 K/uL (1.8-7.0); NEUT % 74.7 % (50.0-75.0); NRBC % 0.1 % (0.0-2.0); RBC 4.96 Mil/uL (4.40-5.90); RED CELL DISTRIBUTION WIDTH 13.7 % (11.5-14.5); WHITE BLOOD COUNT 8.7 K/uL (4.8-10.8)
[2017-11-22 19:04] LABS: SQUAMOUS EPITHIAL < 1 /hpf (0-5); URINE BILIRUBIN NEGATIVE (NEGATIVE); URINE BLOOD NEGATIVE (NEGATIVE); URINE CLARITY Hazy (Clear); URINE COLOR Yellow (YELLOW); URINE GLUCOSE (UA) NORMAL (Normal); URINE LEUKOCYTE ESTERASE NEG Leu/uL (Negative); URINE PROTEIN NEGATIVE (NEGATIVE); URINE UROBILINOGEN NORMAL mg/dL (0.2-1.0)
[2017-11-22 19:15] LABS: ALB/GLOB RATIO 1.2 (1.0-2.1); ALT/SGPT 28 U/L (21-72); AST/SGOT 26 U/L (17-59); BLOOD UREA NITROGEN 14 mg/dL (9-20); CALCIUM 9.1 mg/dl (8.6-10.4); GFR AFRICAN-AMERICAN > 60; GFR NON-AFRICAN AMERICAN > 60
[2017-11-22 19:16] LABS: BARBITURATES, UR NEGATIVE (NEGATIVE); BENZODIAZEPINES, UR NEGATIVE (NEGATIVE); PHENCYCLIDINE, UR NEGATIVE (NEGATIVE)
[2017-11-22 19:17] LABS: OPIATES, UR POSITIVE (NEGATIVE)
--- NOTE | 2017-11-22 20:19 | PCM.BM ---
<Jarad Dan - Last Filed: 11/22/17 20:18> Treatment Plan Problems - Problems identified on initial assessmt potential for opiate withdrawal Date Initiated: 11/22/17 Time Initiated: 20:18 Status: Active Treatment assets and liabiliti Patient Assests: ADL independent, physically healthy Patient Liabilities: substance abuse - Milieu Protocol Maintain good personal hygiene: daily Encourage regular showers, daily Remind patient to perform daily oral care, daily Assist patient to perform ADL's Conduct patient checks and document Observation sheet: Q15 minutes Maintain personal safety: every shift Educate patient to report safety concerns to staff, every shift Monitor environment for contraband/sharps Medication safety: Monitor for expected outcome, potential side effects: every shift, Assess barriers to learning: every shift, Assess readiness for medication education: every shift <Latosha Titsu - Last Filed: 11/23/17 18:21> - Diagnosis (1) Opioid use disorder, severe, dependence Status: Acute Interventions: 11/23/17 18:20 * Assess 7x/week regarding severity of withdrawal * Educate regarding risks, benefits, side effects and alternatives of medications * Use Motivational Interviewing for abstinence * Use CBT for relapse prevention * Medication management for withdrawal symptoms * Encourage medication assisted treatment *
[2017-11-22] MEDS ORDERED: guaiFENesin DM 200 mg-20 mg/10 ml UD PO PRN (21:50)
[2017-11-22] MEDS ORDERED: Aluminum Hydroxide/Magnesium Hydroxide Susp (30 mL) PO PRN (21:50)
[2017-11-22] MEDS ORDERED: Benzocaine/Menthol (Cepacol) Lozenge PO PRN (21:50)
[2017-11-23] MEDS: Magnesium Hydroxide Susp 30 ml UD PO SCH ×2 (09:46→17:24)
--- NOTE | 2017-11-23 10:08 | PCM.PSYCH ---
Initial Psychiatric Evaluation - Initial Psychiatric Evaluation Type of Admission: Voluntary Legal Status: Capacity Chief Complaint (in patient's own words): "I am here for detox" History of Present Illness and Precipitating Events: Patient is a 37-year-old single male. 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 The patient reports he wants to detox from heroin which he uses intranasally 20 bags every day. Patient reports he began using heroin 3 years ago after being on painkillers the year prior. The patient also used cocaine and MJ in the past and smokes half a pack of cigarettes a day. The patient denies the use of alcohol, and other drugs. The patient reports current legal issues regarding the possession of drugs. Patient was last here in June of 2017. After discharge he went to [facility] in [place]. Patient stated that he felt the program was too close to home which increased his temptations to use heroin again. Patient was at the program was 12 days and relapsed soon after. Detox Hx: once Rehab Hx: once Medical Hx: denies Medications: denies Psych Hx: denies Faml Hx: denies Allergies: no known allergies Current Medications: Active Medications Generic Name Dose Route Start Last Admin Trade Name Freq PRN Reason Stop Dose Admin Acetaminophen 650 mg 11/22/17 21:50 Tylenol 325mg Tab PO Q4H PRN Fever greater than 101 F Al Hydrox/Mg Hydrox/Simethicone 30 ml 11/22/17 21:50 Maalox 30 Ml PO TID PRN Indigestion / Heartburn Benzocaine/Menthol 1 jackeline 11/22/17 21:50 Cepacol Sore Throat PO QID PRN Sore Throat Clonidine HCl 0.1 mg 11/22/17 21:50 Catapres PO Q8 PRN COWS Score More or Equal to 5 Guaifenesin/Dextromethorphan 10 ml 11/22/17 21:50 Robitussin Dm PO Q4H PRN Cough and congestion Hydroxyzine HCl 50 mg 11/23/17 09:56 Atarax PO Q6H PRN Anxiety Loperamide HCl 2 mg 11/22/17 21:50 Imodium PO Q8 PRN Diarrhea Magnesium Hydroxide 30 ml 11/23/17 10:00 11/23/17 09:46 Milk Of Magnesia PO 11/25/17 10:01 Not Given BID BONI Methadone HCl 15 mg 11/23/17 10:00 11/23/17 09:44 Methadone PO 11/26/17 00:29 15 mg DAILY BONI Administration Taper Nicotine 1 patch 11/23/17 10:00 11/23/17 09:46 Nicoderm Cq TD Not Given DAILY BONI Ondansetron HCl 4 mg 11/22/17 21:50 Zofran Tab PO Q8 PRN Nausea/Vomiting Pseudoephedrine HCl 60 mg 11/22/17 21:50 Sudafed Tab PO QID PRN Nasal/Sinus Congestion Trazodone HCl 100 mg 11/23/17 09:56 Desyrel PO HS PRN Insomnia Past Psychiatric History - Past Psychiatric History Previous Treatment History: None Pertinent Medical Hx (Current Medical&Sleep Prob, Allergies): Allergies Allergy/AdvReac Type Severity Reaction Status Date / Time No Known Allergies Allergy Verified 11/22/17 17:46 No Known Home Med 11/22/17 Review of Systems - Review of Systems All systems: reviewed and no additional remarkable complaints except - Neurological Neurological: UNREMARKABLE - Psychiatric Psychiatric: Abnormal Sleep Pattern. absent: Anxiety, Auditory Hallucinations, Depression, Difficulty Concentrating, Suicidal Ideation, Visual Hallucinations, Tactile Hallucinations Mental Status Examination - Personal Presentation Personal Presentation: Looks stated age - Affect Affect: Broad - Motor Activity Motor Activity: Calm - Reliability in Providing Information Reliability in Providing Information: Good - Speech Speech: Organized - Mood Mood: Neutral - Formal Thought Process Formal Thought Process: No Impairment - Cognitive Functions Orientation: Person, Place, Time Sensorium: Alert Attention/Concentration: Attentive Estimate of Intelligence: Average Judgement: Intact, as evidence by: Insight regarding need for hospitalization Memory: Recent intact, as evidence by: Ability to recall events of the day, Remote intact, as evidenced by: Abilit to recall sig. life events - Risk Risk: Withdrawal, Diminished functioning - Strength & Assets Inventory Strength & Assets Inventory: Cooperative - Limitations Limitations: Living alone DSM 5 DX - DSM 5 DSM 5 Diagnosis: Opioid Use Disorder, Severe Opioid Withdrawal Tobacco Use Disorder, Moderate - Recommended/Plan of Treatment Treatment Recommendations and Plan of Treatment: Methadone taper As needed meds Gabapentin for augmentation if needed Attend groups and activities Supportive therapy and psychoeducation [place] for abstinence CBT for relapse prevention Encourage MAT Refer to rehab or IOP Attend self-help groups as well 33 min Projected ELOS: 4-5 days Prognosis: good with treatment - Smoking Cessation Smoking Cessation Initiated: Yes
[2017-11-23] MEDS: Multiple Vitamins Tab PO SCH (12:50)
[2017-11-24] MEDS ORDERED: Benzocaine 10% Oral Anesthetic (12 ml) MM PRN (03:14)
[2017-11-24] MEDS: Multiple Vitamins Tab PO SCH (09:04)
[2017-11-24] MEDS: Magnesium Hydroxide Susp 30 ml UD PO SCH ×2 (09:05→17:43)
--- NOTE | 2017-11-24 14:15 | PCM.PYCHPN ---
Psychiatric Progress Note - Psychiatric Progress Note Patient seen today, length of contact: 15 mins Patient Chief Complaint: "I am still having withdrawal symptoms" Problems Identified/Issues Discussed: Patient is seen and evaluated, chart reviewed and discussed with the nurse. Patient reports having with withdrawal symptoms, mainly a jittery feeling. Because of this, patient is having a hard time sleeping, often waking up several times are night. Patient does report taking some naps during the day but the naps are very short. Patient reports eating well and mood is improving compared to yesterday. Patient continues to participate in group activities. Patient is compliant with medications and reports no side effects. Symptoms are improving but still needs more time to stabilize. Support given, CBT and RI used briefly. After care discussed. Medication Change: Yes (detox changes daily) Medical Record Reviewed: Yes Mental Status Examination - Cognitive Function Orientation: Person, Place, Time Attention: WNL Concentration: WNL - Mood Mood: Neutral - Affect Affect: Broad - Speech Speech: Appropriate - Formal Thought Process Formal Thought Process: No Impairment - Suicidal Ideation Suicidal Ideation: No - Homicidal Ideation Homicidal Ideation: No Goal/Treatment Plan - Goal/Treatment Plan Need for Continued Stay: Discharge may exacerbated symptoms, Severe functional impairment Progress Toward Problem(s) and Goals/Treatment Plan: Methadone taper As needed meds Gabapentin for augmentation if needed Attend groups and activities Supportive therapy and psychoeducation RI for abstinence CBT for relapse prevention Encourage MAT Refer to rehab or IOP Attend self-help groups as well
[2017-11-25] MEDS: Multiple Vitamins Tab PO SCH (09:42)
[2017-11-25] MEDS: Magnesium Hydroxide Susp 30 ml UD PO SCH (09:44)
--- NOTE | 2017-11-25 14:13 | PCM.PYCHPN ---
Psychiatric Progress Note - Psychiatric Progress Note Patient seen today, length of contact: 15 mins Patient Chief Complaint: "I am better" Problems Identified/Issues Discussed: The pt is seen, chart reviewed, case discussed with staff. Support and psychoeducation given, CBT and MO used briefly No new symptoms reported, improving slowly and needs more time No SEs from medications, risks discussed. After care discussed Medication Change: Yes (detox changes daily) Medical Record Reviewed: Yes Mental Status Examination - Cognitive Function Orientation: Person, Place, Time Attention: WNL Concentration: WNL Association: WNL Fund of Knowledge: WNL - Mood Mood: Neutral - Affect Affect: Broad - Speech Speech: Appropriate - Formal Thought Process Formal Thought Process: No Impairment - Suicidal Ideation Suicidal Ideation: No - Homicidal Ideation Homicidal Ideation: No Goal/Treatment Plan - Goal/Treatment Plan Need for Continued Stay: Discharge may exacerbated symptoms, Severe functional impairment Progress Toward Problem(s) and Goals/Treatment Plan: Methadone taper As needed meds Gabapentin for augmentation if needed Attend groups and activities Supportive therapy and psychoeducation MO for abstinence CBT for relapse prevention Encourage MAT Refer to rehab or IOP Attend self-help groups as well
--- NOTE | 2017-11-26 08:59 | PCM.PYCHDC ---
Mental Status Examination - Mental Status Examination Orientation: Person, Place, Situation, Time Memory: Intact Mood: Anxious Affect: Constricted Speech: Appropriate Attention: WNL Concentration: WNL Association: WNL Fund of Knowledge: WNL Formal Thought Process: No Impairment Suicidal Ideation: No Current Homicidal Ideation?: No Discharge Summary - Discharge Note Reason for Hospitalization: Opioid detox Consultations:: List each consultation separately and include: 1. Reason for request. 2. Findings. 3. Follow-up Summary of Hospital Course include:: 1. Description of specific treatment plan utilized for patients during their course of treatmen. 2. Summarize the time- course for resolution of acute symptoms and/or regressed behaviors. 3. Describe issues identified and worked on during hospitalization. 4. Describe medication utilized. 5. Describe medical problems identified and treated. 6. Reassessment of suicide risk Summary of Hospital Course: On admission: Patient is a 37-year-old single male. 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 The patient reports he wants to detox from heroin which he uses intranasally 20 bags every day. Patient reports he began using heroin 3 years ago after being on painkillers the year prior. The patient also used cocaine and MJ in the past and smokes half a pack of cigarettes a day. The patient denies the use of alcohol, and other drugs. The patient reports current legal issues regarding the possession of drugs. Patient was last here in June of 2017. After discharge he went to [facility] in [place]. Patient stated that he felt the program was too close to home which increased his temptations to use heroin again. Patient was at the program was 12 days and relapsed soon after. Detox Hx: once Rehab Hx: once Medical Hx: denies Medications: denies Psych Hx: denies Faml Hx: denies Allergies: no known allergies Hospital course: The pt was admitted and started on treatment with psychotherapy, support, psychoeducation and medications. MS and CBT used. The pt attended groups and activities, as well as milieu therapy. All the risks and benefits of medications are discussed and the patient understood and agreed. The pt improved with the treatments provided. After care discussed with the patient. He will go to [facility]. His mo will drive and bring his ID. - Final Diagnosis (DSM 5) Condition upon Discharge: STABLE DSM 5: Opioid Use Disorder, Severe Opioid Withdrawal Tobacco Use Disorder, Moderate Disposition: HOME/ ROUTINE Follow-up Treatment Plan: Continue below medications after discharge. Follow after care plan as discussed. Use relapse prevention skills Return to ER or call 911 if suicidal, homicidal or symptoms relapse. Stay away from stress, alcohol and drugs. See primary doctor regularly and get labs. Prescriptions/Medication Reconciliation: Cyclobenzaprine [Flexeril] 5 mg PO TID PRN #60 tab PRN Reason: muscle spasms Gabapentin [Neurontin] 300 mg PO TID #90 cap hydrOXYzine HCl [Atarax] 50 mg PO BID PRN #30 tab PRN Reason: Anxiety QUEtiapine [Seroquel] 100 mg PO HS #30 tab traZODone [Desyrel] 100 mg PO HS PRN #30 tab PRN Reason: Insomnia - Smoking Cessation Smoking Cessation Medication prescribed: No - Antipsychotic Medications Pt discharged on 2 or more routine antipsychotic medications: No
[2017-11-26] MEDS: Multiple Vitamins Tab PO SCH (09:41)
[2017-11-26 10:22] VITALS: BP 106/69; PULSE 89; RESP 18; TEMP 97.5; O2SAT 97
== END 2017-11-26 10:10 | disposition home or self-care (01) | DRG 745 ==
LOC: C.ER 17:41 → C.7D 19:55
PROVIDERS: ADMIT Psychiatry & Neurology Psychiatry; ATTEND Psychiatry & Neurology Psychiatry
PROC: HZ2ZZZZ Detoxification Services for Substance Abuse Treatment (ICD-10-PCS; principal; 2017-11-22)
DX: F11.23 Opioid dependence with withdrawal (principal); F17.210 Nicotine dependence, cigarettes, uncomplicated; F12.10 Cannabis abuse, uncomplicated

== ENCOUNTER 2018-09-12 19:38 | Inpatient (IN) | payer MEDICAID ==
--- NOTE | 2018-09-12 21:05 | C.PDOC ---
History Of Present Illness Patient presents requesting detox from heroin. Last use [employer]. Denies physical complaints at this time. Time Seen by Provider: 09/12/18 21:05 Chief Complaint (Nursing): Substance Abuse History Per: Patient History/Exam Limitations: no limitations Onset/Duration Of Symptoms: Hrs Current Symptoms Are (Timing): Still Present Suicide/Self Injury Attempted (Context): None Modifying Factor(s): Other (Heroin) Severity: None Pain Scale Rating Of: 0 Involuntary Hold By: None Recent travel outside of the [place]: No Additional History Per: Patient Past Medical History Reviewed: Historical Data, Nursing Documentation, Vital Signs Vital Signs: Last Vital Signs Temp 98.3 F 09/12/18 19:55 Pulse 83 09/12/18 19:55 Resp 18 09/12/18 19:55 BP 102/70 09/12/18 19:55 Pulse Ox 95 09/12/18 19:55 - Medical History PMH: Denies: Diabetes, Hepatitis, HIV, HTN, Seizures, Sexually Transmitted Disease - [facility] DETOXIFICATION SERVICES FOR SUBSTANCE ABUSE TREATMENT (11/22/17) GROUP SQUAD BOSS FOR SUBSTANCE ABUSE TREATMENT, PSYCHOEDUCATION (05/18/17) INDIV PSYCHOTHERAPY FOR SUBSTANCE ABUSE TREATMENT, SUPPORT (05/18/17) Family History: States: No Known Family Hx - Social History Hx Alcohol Use: No Hx Substance Use: Yes - Immunization History Hx Tetanus Toxoid Vaccination: Yes Hx Influenza Vaccination: No Hx Pneumococcal Vaccination: No Review Of Systems Constitutional: Negative for: Fever, Chills Cardiovascular: Negative for: Chest Pain, Palpitations Respiratory: Negative for: Cough, Shortness of Breath Gastrointestinal: Negative for: Nausea, Vomiting Neurological: Negative for: Weakness, Numbness Physical Exam - Physical Exam Appears: Non-toxic Skin: Warm, Dry Head: Normacephalic Eye(s): bilateral: Normal Inspection Oral Mucosa: Moist Chest: Symmetrical, No Tenderness Cardiovascular: Rhythm Regular Respiratory: No Rales, No Rhonchi, No Wheezing Gastrointestinal/Abdominal: Soft, No Tenderness Back: No CVA Tenderness Extremity: Normal ROM Neurological/Psych: Oriented x3 Gait: Steady ED Course And Treatment - Laboratory Results Result Diagrams: 09/12/18 21:10 09/12/18 21:10 O2 Sat by Pulse Oximetry: 95 (Room air) Pulse Ox Interpretation: Normal Progress Note: Blood work and urinalysis ordered. Crisis notified. Disposition Discussed With : Jolene Melo Comment: accepted the pt onher service and took over the care at 10:20 PM Doctor Will See Patient In The: Hospital Counseled Patient/Family Regarding: Studies Performed, Diagnosis - Disposition Disposition: HOSPITALIZED Disposition Time: 21:05 Condition: FAIR Forms: [facility] (Guatemalan) - POA Present On Arrival: None - Clinical Impression Clinical Impression: Drug abuse, Drug dependence - Scribe Statement The provider has reviewed the documentation as recorded by the Scribluis enrique Richter All medical record entries made by the Scribe were at my direction and personally dictated by me. I have reviewed the chart and agree that the record accurately reflects my personal performance of the history, physical exam, medical decision making, and the department course for this patient. I have also personally directed, reviewed, and agree with the discharge instructions and disposition. Decision To Admit - Pt Status Changed To: Hospital Disposition Of: Inpatient - Admit Certification Admit to Inpatient:: After my assessment, the patient will require hospitalization for at least two midnights. This is because of the severity of symptoms shown, intensity of services needed, and/or the medical risk in this patient being treated as an outpatient. - InPatient: Physician Admission Certification: I certify that this patient requires 2 or more midnights of care for the following reason:: After my assessment, the patient will require hospitalization for at least two midnights. This is because of the severity of symptoms shown, intensity of services needed, and/or the medical risk in this patient being treated as an outpatient. - . Bed Request Type: Detox Admitting Physician: Jolene Melo Patient Diagnosis: Drug abuse, Drug dependence
[2018-09-12 21:28] LABS: BASO % 0.3 % (0.0-2.0); EOS # 0.2 K/uL (0.0-0.7); EOS % 3.3 % (0.0-4.0); HEMOGLOBIN 14.9 g/dL (12.0-18.0); LYMPH # 2.5 K/uL (1.0-4.3); LYMPH % 34.7 % (20.0-40.0); MEAN CELL VOLUME 86.7 fL (80.0-94.0); MEAN CORPUSCULAR HEMOGLOBIN 29.3 pg (27.0-31.0); MEAN CORPUSCULAR HGB CONC 33.8 g/dL (33.0-37.0); MONO # 0.5 K/uL (0.0-0.8); MONO % 6.7 % (0.0-10.0); NEUT # 3.9 K/uL (1.8-7.0); NRBC % 0.1 % (0.0-2.0); RBC 5.07 Mil/uL (4.40-5.90); URINE BILIRUBIN NEGATIVE (NEGATIVE); URINE BLOOD NEGATIVE (NEGATIVE); URINE CLARITY Clear (Clear); URINE COLOR Yellow (YELLOW); URINE GLUCOSE (UA) NORMAL (Normal); URINE LEUKOCYTE ESTERASE NEG Leu/uL (Negative); URINE PROTEIN NEGATIVE (NEGATIVE); URINE UROBILINOGEN NORMAL mg/dL (0.2-1.0); WHITE BLOOD COUNT 7.1 K/uL (4.8-10.8)
[2018-09-12 21:33] LABS: ALB/GLOB RATIO 1.5 (1.0-2.1); ALBUMIN 4.2 g/dL (3.5-5.0); ALT/SGPT 17 U/L (21-72); AST/SGOT 35 U/L (17-59); BLOOD UREA NITROGEN 16 mg/dL (9-20); CALCIUM 9.2 mg/dl (8.6-10.4); GFR NON-AFRICAN AMERICAN > 60
[2018-09-12 21:36] LABS: BARBITURATES, UR NEGATIVE (NEGATIVE); BENZODIAZEPINES, UR NEGATIVE (NEGATIVE); OPIATES, UR POSITIVE (NEGATIVE); PHENCYCLIDINE, UR NEGATIVE (NEGATIVE)
--- NOTE | 2018-09-12 22:47 | PCM.BM ---
<Rudolph Allan - Last Filed: 09/12/18 22:44> Treatment Plan Problems - Problems identified on initial assessmt Defensive Coping Date Initiated: 09/12/18 Time Initiated: 22:45 Assessment reference: NA Status: Active Denial Date Initiated: 09/12/18 Time Initiated: 22:45 Assessment reference: NA Status: Active Hopelessness Date Initiated: 09/12/18 Time Initiated: 22:45 Assessment reference: NA Status: Active Treatment assets and liabiliti Patient Assests: ADL independent, physically healthy, cognitively intact Patient Liabilities: substance abuse - Milieu Protocol Maintain good personal hygiene: daily Encourage regular showers, daily Remind patient to perform daily oral care, daily Assist patient to perform ADL's Conduct patient checks and document Observation sheet: Q15 minutes Maintain personal safety: every shift Educate patient to report safety concerns to staff, every shift Monitor environment for contraband/sharps Medication safety: Monitor for expected outcome, potential side effects: every shift, Assess barriers to learning: every shift, Assess readiness for medication education: every shift <Placido Arteaga - Last Filed: 09/15/18 15:20> - Diagnosis (1) Opioid use disorder, severe, dependence Status: Acute Interventions: 09/15/18 15:20 * Assess/adjust medications daily and /or as needed * See patient on an individual basis 7x/week to assess symptoms of depression * Monitor for side effects & effectiveness of medications <Manjula Tolliver - Last Filed: 09/16/18 08:24> Family Contact Family involvement: Famliy/SO not involved - Goals for Treatment Patient goals for treatment: COMPLETE DETOX AND APPLY FOR SHORT-TERM INPATIENT REHAB. Discharge/Continuing Care - Education Needs Education Needs: Patient Medication, Patient Diagnosis/Disease Process, Patient Coping Skills, Patient Anger Management skills, Patient Placement options, Patient Community resources - Discharge Discharge Criteria: No longer exhibiting s/s of withdrawal, Reduction of target symptoms Discharge to:: Substance Abuse Rehab - Treatment Team Participation Patient/Family/SO Statement: 09/16/18 08:24 "I WANNA GO TO REHAB BUT ONLY SHORT-TERM..." Discussed with Family/SO: No Was Patient/Family/SO present at Treatment Team Meeting: Yes
[2018-09-13] MEDS: Multiple Vitamins Tab PO SCH (10:22)
[2018-09-13] MEDS ORDERED: Aluminum Hydroxide/Magnesium Hydroxide Susp (30 mL) PO PRN (15:02)
--- NOTE | 2018-09-13 19:27 | PCM.PSYCH ---
Initial Psychiatric Evaluation - Initial Psychiatric Evaluation Type of Admission: Voluntary Legal Status: Capacity Chief Complaint (in patient's own words): I need help for my heroin use. History of Present Illness and Precipitating Events: Patient is a 37 years old, single, unemployed, male with no previous psychiatric history was admitted due to withdrawing from opioid. Opioid: Patient started using heroin 3 years ago, increased gradually up to 20 bags of heroine daily, sniffing. Last use was yesterday. Patient has 3 detox in the past and no rehab. Patient also has history of cannabis and alcohol use in the past. Last used 15 years ago. Also has history of PCP use during his teenage years. Patient smokes half pack of cigarettes daily, refused to get nicotine patch. Currently patient is on probation for theft. Patient was born in [place] and has high school graduation. Patient is not working for last 1 year. Is also working in construction. Never and has 126 years old daughter. Patient lives alone. His height is 5 feet 8 inches and weight is 160 pounds. Current Medications: Active Medications Generic Name Dose Route Start Last Admin Trade Name Freq PRN Reason Stop Dose Admin Al Hydrox/Mg Hydrox/Simethicone 30 ml 09/13/18 15:02 Maalox 30 Ml PO TID PRN Indigestion / Heartburn Clonidine HCl 0.1 mg 09/13/18 15:02 09/13/18 15:12 Catapres PO 0.1 mg Q4 PRN Administration COWS Score More or Equal to 5 Dicyclomine HCl 10 mg 09/13/18 15:02 Bentyl PO Q6 PRN Muscle spasm Gabapentin 400 mg 09/13/18 18:00 09/13/18 17:09 Neurontin PO Not Given TID BONI Hydroxyzine HCl 25 mg 09/12/18 22:31 09/13/18 15:12 Atarax PO 25 mg Q6 PRN Administration Anxiety Ibuprofen 600 mg 09/13/18 15:02 Motrin Tab PO Q6 PRN Pain, moderate (4-7) Loperamide HCl 2 mg 09/13/18 15:02 Imodium PO Q8 PRN Diarrhea Methadone HCl 20 mg 09/13/18 10:00 09/13/18 10:22 Methadone PO 09/17/18 09:59 20 mg Q24H BONI Administration Taper Multivitamins 1 tab 09/13/18 10:00 09/13/18 10:22 Hexavitamin PO 1 tab DAILY BONI Administration Ondansetron HCl 4 mg 09/13/18 15:02 Zofran Tab PO Q8 PRN Nausea/Vomiting Trazodone HCl 50 mg 09/12/18 22:29 09/12/18 23:34 Desyrel PO 50 mg HS PRN Administration Insomnia Past Psychiatric History - Past Psychiatric History Previous Treatment History: Inpatient Nature of Treatment: 3 detox History of Abuse: None reported History of ETOH/Drug Use: See HPI History of Family Illness: Reported his brother has history of opioid use disorder Pertinent Medical Hx (Current Medical&Sleep Prob, Allergies): Allergies Allergy/AdvReac Type Severity Reaction Status Date / Time No Known Allergies Allergy Verified 11/22/17 17:46 No Known Home Med 09/12/18 Review of Systems - Psychiatric Psychiatric: As Per HPI, Anhedonia, Anxiety Mental Status Examination - Personal Presentation Personal Presentation: Looks stated age - Affect Affect: Other (Anxious) - Motor Activity Motor Activity: Calm - Reliability in Providing Information Reliability in Providing Information: Fair - Speech Speech: Organized - Mood Mood: Anxious - Formal Thought Process Formal Thought Process: No Impairment - Hallucinations/Delusions Hallucinations: Other (None reported) Delusions: Other - Obsessions/Compulsions Obsessions: None Compulsions: None - Cognitive Functions Orientation: Person, Place, Situation, Time Sensorium: Alert Attention/Concentration: Attentive Abstract Thinking: [place] Estimate of Intelligence: Average Judgement: Intact, as evidence by: Insight regarding need for hospitalization Memory: Recent intact, as evidence by: Ability to recall events of the day, Remote intact, as evidenced by: Ability to recall historical events - Risk Risk: Withdrawal, Diminished functioning - Strength & Assets Inventory Strength & Assets Inventory: Cooperative - Limitations Limitations: Living alone DSM 5 DX - DSM 5 DSM 5 Diagnosis: Opioid withdrawal Opioid use disorder severe - Recommended/Plan of Treatment Treatment Recommendations and Plan of Treatment: Patient education. Supportive therapy. We will start methadone taper for opioid withdrawal symptoms. Other PRN medications. Patient [facility] to [facility] to [facility] for follow-up care after discharge from the hospital. Projected ELOS: 4-5 days Discharge Plan and Discharge Criteria: No or minimal withdrawal symptoms - Smoking Cessation Smoking Cessation Initiated: No Reason for not providing: Patient refused
[2018-09-14] MEDS: Multiple Vitamins Tab PO SCH (09:16)
--- NOTE | 2018-09-14 16:26 | PCM.PYCHPN ---
Psychiatric Progress Note - Psychiatric Progress Note Patient seen today, length of contact: 15 minutes Patient Chief Complaint: I am feeling a little better, but I have sleeping problems. Problems Identified/Issues Discussed: Patient seen, chart reviewed, case discussed with the staff. Issues related to illness and treatment were discussed with the patient and staff. Reported compliance with treatment with no adverse effect. Tolerating treatment very well. Patient reported feeling little better, still has withdrawal symptoms including body aches, abdominal cramps, nausea, decreased sleep and headache. Mood reported as anxious. Affect appropriate. Aftercare discussed with the patient. Patient denied any delusions, auditory or visual hallucinations, no suicidal ideations or homicidal ideations at the time of the evaluation. Medical Problems: None reported Diagnostic Results: Reviewed DSM 5 Symptoms Update: Some improvement with treatment Medication Change: Yes (When increased her dose of trazodone to 100 mg mg.) Medical Record Reviewed: Yes Mental Status Examination - Cognitive Function Orientation: Person, Place, Situation, Time Memory: Intact Attention: WNL Concentration: WNL Association: WN Fund of Knowledge: [facility] Decription of patient's judgement and insights: Good - Mood Mood: Anxious - Affect Affect: Other (Appropriate) - Speech Speech: Appropriate - Formal Thought Process Formal Thought Process: No Impairment Psychotic Thoughts and Behaviors: None - Suicidal Ideation Suicidal Ideation: No - Homicidal Ideation Homicidal Ideation: No Goal/Treatment Plan - Goal/Treatment Plan Need for Continued Stay: Remain at risks for inpatient hospitalization, Discharge may exacerbated symptoms, Severe functional impairment Progress Toward Problem(s) and Goals/Treatment Plan: Some improvement with treatment. Patient education. Supportive therapy. CBT for relapse prevention. OK for abstinence. Will increase the dose of trazodone to 100 mg at bedtime. Estimated Date of D/C: 09/16/18 - Smoking Cessation Smoking Cessation Initiated: No
[2018-09-15] MEDS: Multiple Vitamins Tab PO SCH (09:01)
[2018-09-15 10:49] VITALS: RESP 18
--- NOTE | 2018-09-15 15:17 | PCM.PYCHPN ---
Psychiatric Progress Note - Psychiatric Progress Note Patient seen today, length of contact: 15 minutes Patient Chief Complaint: I am feeling little better. Problems Identified/Issues Discussed: Patient seen, chart reviewed, case discussed with the staff. Issues related to illness and treatment were discussed with the patient and staff. Reported compliance with treatment with no adverse effect. Tolerating treatment very well. Patient reported feeling little better, still has withdrawal symptoms including body aches, abdominal cramps, nausea, decreased sleep and headache, but less than before. Mood reported as anxious. Affect appropriate. Aftercare discussed with the patient. Patient denied any delusions, auditory or visual hallucinations, no suicidal ideations or homicidal ideations at the time of the evaluation. Medical Problems: None reported Diagnostic Results: Reviewed DSM 5 Symptoms Update: Some improvement with treatment. Medication Change: No Medical Record Reviewed: Yes Mental Status Examination - Cognitive Function Orientation: Person, Place, Situation, Time Memory: Intact Attention: WNL Concentration: WNL Association: WNL Fund of Knowledge: WNL - Mood Mood: Anxious (Less than before) - Affect Affect: Other (Anxious) - Speech Speech: Appropriate - Formal Thought Process Formal Thought Process: No Impairment Psychotic Thoughts and Behaviors: None - Suicidal Ideation Suicidal Ideation: No - Homicidal Ideation Homicidal Ideation: No Goal/Treatment Plan - Goal/Treatment Plan Need for Continued Stay: Remain at risks for inpatient hospitalization, Discharge may exacerbated symptoms, Severe functional impairment Progress Toward Problem(s) and Goals/Treatment Plan: Patient education. Supportive therapy. Continue treatment as before. Patient [facility] to [facility] to [facility] for follow-up care after discharge from the hospital. Estimated Date of D/C: 09/16/18 - Smoking Cessation Smoking Cessation Initiated: No
[2018-09-16] MEDS: Multiple Vitamins Tab PO SCH (09:04)
[2018-09-16 09:28] VITALS: BP 114/70; PULSE 78; TEMP 97.9; O2SAT 99
--- NOTE | 2018-09-17 12:34 | PCM.PYCHDC ---
Mental Status Examination - Mental Status Examination Orientation: Person, Place, Situation, Time Memory: Intact Mood: Neutral Affect: Other (Appropriate) Speech: Appropriate Attention: WNL Concentration: WNL Association: WNL Fund of Knowledge: WNL Formal Thought Process: No Impairment Description of patient's judgement and insight: Good Psychotic Thoughts and Behaviors: None Suicidal Ideation: No Current Homicidal Ideation?: No Discharge Summary - Discharge Note Reason for Hospitalization: Opioid withdrawal Opioid use disorder severe Psychiatric History (includes Medical, Family, Personal Hx): 3 detox Laboratory Data: Reviewed Consultations:: List each consultation separately and include: 1. Reason for request. 2. Findings. 3. Follow-up Summary of Hospital Course include:: 1. Description of specific treatment plan utilized for patients during their course of treatmen. 2. Summarize the time- course for resolution of acute symptoms and/or regressed behaviors. 3. Describe issues identified and worked on during hospitalization. 4. Describe medication utilized. 5. Describe medical problems identified and treated. 6. Reassessment of suicide risk Summary of Hospital Course: Patient is a 37 years old, single, unemployed, male with no previous psychiatric history was admitted due to withdrawing from opioid. Opioid: Patient started using heroin 3 years ago, increased gradually up to 20 bags of heroine daily, sniffing. Last use was yesterday. Patient has 3 detox in the past and no rehab. Patient also has history of cannabis and alcohol use in the past. Last used 15 years ago. Also has history of PCP use during his teenage years. Patient smokes half pack of cigarettes daily, refused to get nicotine patch. Currently patient is on probation for theft. Patient was born in [place] and has high school graduation. Patient is not working for last 1 year. Is also working in construction. Never and has 126 years old daughter. Patient lives alone. His height is 5 feet 8 inches and weight is 160 pounds. During his stay in the hospital, patient was treated with methadone and other PRN medications. Patient was attending groups and other activities on the unit. With above treatment patient started feeling better. Today patient had no withdrawal symptoms and was ready to discharge from the hospital. At the time of evaluation and discharge, patient was awake, alert and oriented x3, had no delusions, no auditory or visual hallucinations, no suicidal ideations or homicidal ideation. Patient was discharged in a stable condition. - Diagnosis (1) Opioid use disorder, severe, dependence Status: Acute - Final Diagnosis (DSM 5) Condition upon Discharge: FAIR Disposition: HOME/ ROUTINE Follow-up Treatment Plan: Patient will go to [facility] for follow-up care after discharge from the hospital. Prescriptions/Medication Reconciliation: Gabapentin [Neurontin] 400 mg PO TID #30 cap traZODone [Desyrel] 100 mg PO HS PRN #30 tab PRN Reason: Insomnia - Smoking Cessation Smoking Cessation Medication prescribed: No - Antipsychotic Medications Pt discharged on 2 or more routine antipsychotic medications: No
== END 2018-09-16 10:15 | disposition home or self-care (01) | DRG 745 ==
LOC: C.ER 19:38 → C.7D 22:19
PROVIDERS: ADMIT Psychiatry & Neurology Psychiatry; ATTEND Psychiatry & Neurology Psychiatry
PROC: HZ2ZZZZ Detoxification Services for Substance Abuse Treatment (ICD-10-PCS; principal; 2018-09-12)
PROC: HZ59ZZZ Individual Psychotherapy for Substance Abuse Treatment, Supportive (ICD-10-PCS; 2018-09-12)
PROC: HZ46ZZZ Group Counseling for Substance Abuse Treatment, Psychoeducation (ICD-10-PCS; 2018-09-12)
DX: F11.23 Opioid dependence with withdrawal (principal); F17.210 Nicotine dependence, cigarettes, uncomplicated